=== PATIENT | female | born 1985 | race Caucasian/White ===

== ENCOUNTER 2021-07-21 20:40 | Emergency (ER) | payer BC ==
[~2021-07-21] VITALS: Ht 162.6 cm; Wt 108.9 kg
[~2021-07-21 20:40] MED LIST: ATIVAN0.5 MG PO; BACTRIM DS TAB1 EACH PO; BCP; BENADRYL ALLERG25 MG PO; BENADRYL ITCH28.3 G1 TP; BUSPAR PO; ESKALITH300 MG PO; FLEXERIL PO; HYDROCODONE-AP1 EAC6 PO; LAMICTAL PO; MONONESSA; NAPROSYN500 MG PO; NOHOMEMEDICATIONS; PAXIL40 MG; PERCOCET 7.5-31 EACH PO; PHENAZOPYRIDIN200 M2 PO; PREDNISONE 20 M20 M1 PO; PROMETHAZINE-D120 ML PO; PROZAC10 MG PO; PROZAC20 MG PO; SEROQUEL 25 MG25 M1; SEROQUEL 25 MG25 M1 PO; SEROQUEL XR50 MG PO; TRAZODONE HCL50 MG; VICODIN 5-3001 EACH PO; XANAX 0.25 MG0.25 MG PO; XANAX 0.5 MG0.5 MG PO; ZANTAC 7575 MG PO
[2021-07-21] MEDS ORDERED: SEROQUEL 25 MG25 M1 PO (20:49)
[2021-07-21] MEDS ORDERED: LORAZEPAM 0.50.5 MG PO (20:50)
[2021-07-21 21:45] LABS: URINE BILIRUBIN NEGATIVE (Negative); URINE BLOOD NEGATIVE (Negative); URINE CLARITY CLEAR; URINE COLOR YELLOW; URINE GLUCOSE-RANDOM NEGATIVE (Negative); URINE KETONES NEGATIVE (Negative); URINE LEUKOCYTES-REFLEX 1+ (Negative); URINE NITRITE-REFLEX NEGATIVE (Negative); URINE PROTEIN NEGATIVE (Negative)
[2021-07-21 21:54] LABS: BACTERIA-REFLEX 1-9 Few /HPF (None Seen); CASTS None Seen /LPF (None Seen); CRYSTALS None Seen /LPF (None Seen); SQUAMOUS >10 Many /LPF (0-3); URINE RBC 0-2 Rare /HPF (0-2); URINE WBC-REFLEX 0-5 Rare /HPF (0-5)
[2021-07-21] MEDS ORDERED: CEPHALEXIN500 MG PO (22:24)
[2021-07-21 22:50] VITALS: BP 148/84
--- NOTE | 2021-07-22 08:50 | EKG ---
[place] [address] ELECTROCARDIOGRAM REPORT Name: DANIELLA VALDERRAMA Room: [facility]#: [id number] Admission: 07/21/21 Attend Phys: Discharge: 07/21/21 Date of : 89 Date of Service: 07/21/212051 Report #: [id number] THIS REPORT FOR: //name// [facility] ED Test Date: 2021-07-21 Test Time: 20:52:26 Pat Name: DANIELLA VALDERRAMA Department: Room: Gender: F Certified Alcohol Counselor: RENATA : 1985 Requested By: Rosalino Barreto Order Number: [id number] MD: Alexis Parish Measurements Intervals [place] Rate: 79 P: 0 IN: 137 QRS: 7 QRSD: 93 T: 32 QT: 394 QTc: 452 Interpretive Statements Sinus rhythm Compared to ECG 05/28/2014 15:04:49 Sinus bradycardia no longer present Sinus arrhythmia no longer present Electronically Signed On 07-22-2021 8:50:29 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
== END 2021-07-21 22:50 | disposition home or self-care (01) ==
LOC: M.ERS 20:40
PROVIDERS: Emergency Medicine
DX: M54.50 Low back pain, unspecified (principal); N39.0 Urinary tract infection, site not specified; F41.9 Anxiety disorder, unspecified; F32.9 Major depressive disorder, single episode, unspecified; F17.210 Nicotine dependence, cigarettes, uncomplicated; Z79.899 Other long term (current) drug therapy; Z90.49 Acquired absence of other specified parts of digestive tract; Z88.5 Allergy status to narcotic agent; Z90.89 Acquired absence of other organs